=== PATIENT | female | born 1965 | race Caucasian/White ===

== ENCOUNTER 2017-06-22 15:45 | Emergency (ER) | payer MEDICAID, MEDICARE ==
[2017-06-22 17:05] VITALS: BP 132/83
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
== END 2017-06-22 18:01 | disposition short-term general hospital (02) ==
LOC: UCCORT 15:45
DX: R22.0 Localized swelling, mass and lump, head (principal); R51 Headache; H53.8 Other visual disturbances; F17.210 Nicotine dependence, cigarettes, uncomplicated
CPT/HCPCS: 99201; G0463

== ENCOUNTER 2017-08-15 12:25 | Emergency (ER) | payer MEDICARE ==
[2017-08-15 12:44] VITALS: BP 114/74
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
--- NOTE | 2017-08-15 13:59 | RAD ---
INDICATION: Nasal bone trauma. TECHNIQUE: 3 views of the nasal bones were obtained including lateral and Michaels views. FINDINGS: There is soft tissue swelling overlying the nose and anterior to the frontal sinuses. There is a large defect in the proximal portion of the nasal bones possibly from prior surgery, trauma less likely a mass replacing the bone. No acute fracture is seen. There is mild deviation of the nasal septum toward the right side. There is mild mucosal thickening within the right maxillary sinus. The paranasal sinuses otherwise appear clear. IMPRESSION: LARGE DEFECT IN THE PROXIMAL PORTION OF THE NASAL BONES POSSIBLY FROM PRIOR TRAUMA OR SURGERY LESS LIKELY A MASS. RECOMMEND CLINICAL CORRELATION. NO ACUTE FRACTURE IS SEEN.
== END 2017-08-15 14:45 | disposition home or self-care (01) ==
LOC: UCEAST 12:25
DX: S00.33XA Contusion of nose, initial encounter (principal); W22.8XXA Striking against or struck by other objects, initial encounter; Y93.9 Activity, unspecified; Y92.9 Unspecified place or not applicable
CPT/HCPCS: 70160; 99211; G0463

== ENCOUNTER → 2017-09-16 13:07 | Day surgery (SDC) | payer MEDICARE ==
[~2017-09-16 13:07] MED LIST: Acetaminophen TAB* 325 MG PO PRN; Buffered Lidocaine 0.9% SYRIN* 5 ML/SYR SYRINGE INTRADERM ONE; Lidocaine 1% MPF wEPI 200,000* 30 ML SDV ONE; Lidocaine 2% JELLY* 6 ML JELLY TOPICAL ONE; Lidocaine 2% PF * 5 ML VIAL ONE; Lidocaine 4% TOPICAL* 50 ML TOP.SOLN ONE; Naloxone* 0.4 MG/ML 1 ML VIAL IV PRN; Oxymetazoline 0.05% NASAL SPR* 15 ML BTL ONE; Propofol* 10 MG/ML 20 ML BTL IV PUSH ONE; fentaNYL* 50 MCG/ML 2 ML VIAL (100 MCG VIAL) ONE; oxyCODONE/Acetamin 5/325 MG* TAB ONE
[2017-09-16] MEDS: oxyCODONE/Acetamin 5/325 MG* TAB PO PRN ×2 (17:35→17:36)
[2017-09-16 17:39] VITALS: BP 147/86
--- NOTE | 2017-09-17 12:26 | OP ---
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 OPERATIVE PROCEDURE: Endoscopic ethmoidectomy and biopsy of nasal mass. BRIEF HISTORY: This pleasant 52-year-old female presenting with an expansile lesion of the nasal cavity. This appeared to be a fairly aggressive tumor. DESCRIPTION OF PROCEDURE: The patient was taken to the operating room, general anesthetic was given, the patient was intubated with LMA. Nose was decongested with Afrin-placed pledgets. Subsequently, a 0-degree telescope with endoscopic sinus surgery instruments were utilized. We turned our attention initially to the left side, infiltrating with 2% lidocaine with epinephrine into the ethmoid region and then subsequently resecting at the ethmoid bullae and coursing superiorly, and examining the area with a scope, removing tissue which was confirmed to be a neoplastic most likely malignant. Further biopsies were carried out in the ethmoid region for additional specimen. The area was then packed with Ebenezer packs. The patient was then awakened and sent to the recovery room in stable condition. Instrument and sponge count correct. Blood loss minimal. [id number]/[facility] #: [id number] MTDD
== END | disposition home or self-care (01) ==
LOC: OR 13:07
PROVIDERS: ATTEND Otolaryngology
DX: C31.1 Malignant neoplasm of ethmoidal sinus (principal); C30.0 Malignant neoplasm of nasal cavity; J31.0 Chronic rhinitis; F17.210 Nicotine dependence, cigarettes, uncomplicated
CPT/HCPCS: 88305; 88331; 88341; 88342; 88365; A9270-GY; J2001; J2704; J3010

== ENCOUNTER 2018-03-31 15:15 | Emergency (ER) | payer MEDICARE, MEDICAID ==
[2018-03-31 15:34] VITALS: BP 137/90
--- NOTE | 2018-03-31 15:56 | UC ---
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 Negative: Dyspnea, Fever, Chills, Pleuritic Chest Pain, Wheezing - Risk Factors Pulmonary Embolism Risk Factors: Malignancy - Allergies/Home Medications Allergies/Adverse Reactions: Allergies Allergy/AdvReac Type Severity Reaction Status Date / Time No Known Allergies Allergy Verified 03/31/18 15:34 Home Medications: Home Medications Pseudoephedrine TAB* [Sudafed TAB*] 60 mg PO ONCE PRN 03/31/18 [History Confirmed 03/31/18] PMH/Surg Hx/FS Hx/Imm Hx Previously Healthy: Yes Respiratory History: Bronchitis - Surgical History Surgical History: Yes Surgery Procedure, Year, and Place: 2 C-sections [facility]. CANCEROUS TUMOR REMOVAL ( FACE) - Family History Known Family History: Positive: Hypertension - Social History Alcohol Use: None Substance Use Type: None Smoking Status (MU): Current Every Day Smoker Type: Cigarettes Amount Used/How Often: 1/2 PPD Length of Time of Smoking/Using Tobacco: 37 YRS Have You Smoked in the Last Year: Yes Household Exposure Type: Cigarettes Review of Systems All Other Systems Reviewed And Are Negative: Yes Constitutional: Positive: Negative Skin: Positive: Negative Eyes: Positive: Negative ENT: Positive: Sinus Congestion, Sinus Pain/Tenderness Respiratory: Positive: Shortness Of Breath, Cough Cardiovascular: Positive: Chest Pain Gastrointestinal: Positive: Negative Genitourinary: Positive: Negative Motor: Positive: Negative Neurovascular: Positive: Negative Musculoskeletal: Positive: Negative Neurological: Positive: Negative Psychological: Positive: Negative Physical Exam Triage Information Reviewed: Yes Appearance: Well-Appearing, No Pain Distress, Well-Nourished Vital Signs: Initial Vital Signs Temp 98.4 F 03/31/18 15:29 Pulse 115 03/31/18 15:29 Resp 16 03/31/18 15:29 BP 137/90 03/31/18 15:29 Pulse Ox 98 03/31/18 15:29 Vital Signs Reviewed: Yes Eyes: Positive: Conjunctiva Clear ENT: Positive: Hearing grossly normal, Nasal congestion, Other - jamal orbital edema and post surgical changes Neck: Positive: Supple, Nontender Respiratory: Positive: Lungs clear, Normal breath sounds, No respiratory distress, No accessory muscle use Cardiovascular: Positive: RRR, No Murmur, Tachycardia Neurological: Positive: Alert Psychological Exam: Normal Skin Exam: Normal UC Diagnostic Evaluation - Laboratory O2 Sat by Pulse Oximetry: 98 - normal/not hypoxic - Radiology Radiology Interpretation Completed By: Radiologist Summary of Radiographic Findings: THERE IS NODULARITY OF THE LEFT LOWER LUNG. GIVEN THE HISTORY OF MALIGNANCY, METASTATIC. DISEASE TO THE LUNG IS WITHIN THE DIFFERENTIAL. RECOMMEND CONSIDERATION OF FURTHER. EVALUATION WITH CT OF [facility] - EKG Cardiac Rate: Tachycardia - 105 Cardiac Rhythm: Sinus: Normal Ectopy: None ST Segment: Normal Respiratory Course/Dx - Course Course Of Treatment: D/W [facility]. pt will be driven down to ER by her son - Differential Dx/Diagnosis Provider Diagnoses: chest pain of uncertain cause. left pulmonary nodule. ?PE Discharge - Sign-Out/Discharge Documenting (check all that apply): Patient Departure All imaging exams completed and their final reports reviewed: Yes - Discharge Plan Condition: Stable Disposition: TRANS HIGHER LVL OF CARE FAC Referrals: Mari SUAREZ SALESPERSON HOSIERYTenisha [Primary Care Provider] - Additional Instructions: I suggest you go directly to the ER for evaluation of your chest pain and shortness of breath - Billing Disposition and Condition Condition: STABLE Disposition: Trans Higher Lvl of Care Fac
== END 2018-03-31 17:01 | disposition short-term general hospital (02) ==
LOC: UCEAST 15:15
DX: R07.9 Chest pain, unspecified (principal); R91.1 Solitary pulmonary nodule; R06.02 Shortness of breath; R05 Cough; F17.210 Nicotine dependence, cigarettes, uncomplicated
CPT/HCPCS: 71046; 93005; 99212; G0463

== ENCOUNTER 2018-06-16 17:49 | Emergency (ER) | payer MEDICARE, MEDICAID ==
[2018-06-16 18:31] VITALS: BP 118/79
--- NOTE | 2018-06-16 19:24 | UC ---
Ear Complaint HPI - HPI Summary HPI Summary: 53 y/o female presents to the urgent care c/o B/l eye redness with crusting yellowish drainage since this morning when she woke up. She also c/o of left Ear pain since yesterday. 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 Pt states healing wound had been healing well, until last night when she developed left ear pain. Pain is 8/10 with decrease hearing. She took an Ibuprofen PO to alleviate symptoms. She has a f/u appt on 07/05/2018 with her surgeon. She has been doing the saline rinses as directed. She has mild nasal congestion with clear nasal discharge today. Pt denies fever, dizziness, tinnitus, SHUKLA, visual changes, photophobia, eye pain, SOB, chest pain, abdominal pain, N/V/D. - History of Current Complaint Chief Complaint: UCEar Stated Complaint: EAR ACHE Time Seen by Provider: 06/16/18 19:08 Hx Obtained From: Patient Hx Last Menstrual Period: hide curer Onset/Duration: Gradual Onset, Lasting Days - 1 day, Still Present, Worse Since - this morning Severity Initially: Mild Severity Currently: Moderate Pain Intensity: 7 - ear pain Pain Scale Used: 0-10 Numeric Aggravating Factors: Nothing Alleviating Factors: OTC Meds Associated Signs/Symptoms: Positive: Hearing Loss - decrease on left ear, URI Symptoms - Allergies/Home Medications Allergies/Adverse Reactions: Allergies Allergy/AdvReac Type Severity Reaction Status Date / Time No Known Allergies Allergy Verified 06/16/18 18:31 PMH/Surg Hx/FS Hx/Imm Hx Previously Healthy: Yes Other Cancer History: nasal tumor recently removed on 05/21/2018 - Surgical History Surgical History: Yes Surgery Procedure, Year, and Place: 2 C-sections [facility];. CANCEROUS TUMOR REMOVAL (FACE); - Family History Known Family History: Positive: Hypertension - Social History Occupation: Unemployed Lives: With Family Alcohol Use: None Substance Use Type: None Smoking Status (MU): Light Every Day Tobacco Smoker Type: Cigarettes Amount Used/How Often: 1/2 PPD Length of Time of Smoking/Using Tobacco: 37 YRS Have You Smoked in the Last Year: Yes Household Exposure Type: Cigarettes Review of Systems All Other Systems Reviewed And Are Negative: Yes Constitutional: Positive: Negative Skin: Positive: Negative Eyes: Positive: Eye Redness - B/L eye redness with yellowish discharge ENT: Positive: Ear Ache - left ear pain, Nasal Discharge - clear, Sinus Congestion Respiratory: Positive: Negative Cardiovascular: Positive: Negative Gastrointestinal: Positive: Negative Genitourinary: Positive: Negative Motor: Positive: Negative Neurovascular: Positive: Negative Musculoskeletal: Positive: Negative Neurological: Positive: Negative Psychological: Positive: Negative Is Patient Immunocompromised?: No Physical Exam - Summary Physical Exam Summary: Vital Signs Reviewed: Yes General: Well appearing, well nourished female in no apparent pain distress Eyes: Positive: B/L Conjunctiva Inflamed - Visual acuity: WNL,Visual chiu: full to confrontation. Pt with healing scar over the anterior superior nasal cavity and frontal sinus healing well with mild sorrounding erythema, non tender to palaption.PERRLA, EOMI intact w/out limitation or complaint of pain. eyelashes clear. mild tearing and yellowish drainage observed. No ciliary flush. No chemosis, No photophobia. Normal fundoscopic exam; no proptosis, exophthalmos, nystagmus. ENT: Positive: Normal ENT inspection, Hearing grossly normal, Pharynx normal, Nasal congestion, Nasal clear drainage, LF TM injected with erythema and mild purulent discahrge, Rt TN WNL, - B/L external ear canal clear , Negative Tonsillar swelling or Tonsillar exudate Neck: Positive: Supple, Nontender, No Lymphadenopathy Respiratory: Positive: Chest nontender, Lungs clear, Normal breath sounds, No respiratory distress Cardiovascular: Positive: RRR, No Murmur, Pulses Normal, Brisk Capillary Refill Abdomen Description: Positive: Nontender, No Organomegaly, Soft. Negative: CVA Tenderness (R), CVA Tenderness (L) Bowel Sounds: Positive: Present Musculoskeletal: Positive: Strength Intact, ROM Intact, No Edema Neurological Exam: Normal Psychological Exam: Normal Skin Exam: Normal Triage Information Reviewed: Yes Vital Signs: Initial Vital Signs Temp 98.8 F 06/16/18 18:26 Pulse 86 06/16/18 18:26 Resp 16 06/16/18 18:26 BP 118/79 06/16/18 18:26 Pulse Ox 99 06/16/18 18:26 Ear Complaint Course/Dx - Course Course Of Treatment: 53 y/o female presents to the urgent care c/o B/l eye redness with crusting yellowish drainage since this morning when she woke up. She also c/o of left Ear pain since yesterday. Pt reports on 05/21/2018 a Malignant tumor was removed from her anterior superior and frontal sinus cavity by DR Andujar in [place], [place]. Pt states healing wound had been healing well, until last night when she developed left ear pain. Pain is 8/10 with decrease hearing. She took an Ibuprofen PO to alleviate symptoms. She has a f/u appt on with her surgeon. She has been doing the saline rinses as directed. She has mild nasal congestion with clear nasal discharge today. Pt denies fever , dizziness, tinnitus, SHUKLA, visual changes, photophobia, eye pain, SOB, chest pain, abdominal pain, N/V/D. Hx obtained. Pt w/ B/L bacterial conjunctivitis and left otitis media on examination. Pt is afebrile and hemodynamically stable. Pt's symptoms discussed with Dr pratt who recommended Rx antibiotics and f/u with Surgeon as soon as possible for further management. Pt Rx Amoxicillin PO and Ciprofloxacin opthalmic drops as directed below. Advised to sterilize the tea cup where she does the nasal rinses to avoid increase infection. Strongly advised to call DR Andujar tomorrow to get a sooner appt for 1 -2 days for further managment. D/C instrucitons explained. Pt understood and agreed with plan of care. Pt left clinic hemodynamically stable, A&OX3. - Differential Dx/Diagnosis Differential Diagnosis/HQI/PQRI: Cerumen Impaction, Otitis Externa, Otitis Media , Perforated TM, URI, Other - conjunctivitis Provider Diagnosis: Acute bacterial conjunctivitis of both eyes, Left otitis media Discharge - Sign-Out/Discharge Documenting (check all that apply): Patient Departure - d/c home All imaging exams completed and their final reports reviewed: No Studies - Discharge Plan Condition: Stable Disposition: HOME Prescriptions: Amoxicillin PO (*) [Amoxicillin 875 MG (*)] 875 mg PO BID #20 tab Ciprofloxacin 0.3% OPTH.RAYNE* [Cipro 0.3% Opth*] 2 drop BOTH EYES Q4H #1 btl Patient Education Materials: Ear Infection (ED), Conjunctivitis (ED) Referrals: Eboni Andujar MD [Medical Doctor] - 1 Day Mari SCHUMACHER,Tenisha [Primary Care Provider] - 2 Days Odell Mahmood MD [Medical Doctor] - If Needed Additional Instructions: 1-Please apply ciprofloxacin ophthalmic drops as instructed and finish the full course of treatment to avoid recurrent infection. encourage hand washing to avoid spreading 2-Please take Amoxicillin PO as directed to alleviate Left otitis Media. finish full course of antibiotic to avoid resistance. 3-Please call back you Nose Surgeo DR Andujar tomorrow to get a sooner appt for a f/u check up on your recent surgery and make sure symptoms are improving with antibiotics. 4-If unable to get a sooner appt and symptoms do not improve please f/u with ENT Dr Mahmood for further evaluation and treatment - Billing Disposition and Condition Condition: STABLE Disposition: Home
[2018-06-16 19:59] LABS: Influenza A Molecular NEGATIVE (Negative); Influenza B Molecular NEGATIVE (Negative)
== END 2018-06-16 20:30 | disposition home or self-care (01) ==
LOC: UCEAST 17:49
DX: H10.33 Unspecified acute conjunctivitis, bilateral (principal); H66.92 Otitis media, unspecified, left ear; R09.81 Nasal congestion; F17.210 Nicotine dependence, cigarettes, uncomplicated; B96.89 Other specified bacterial agents as the cause of diseases classified elsewhere
CPT/HCPCS: 99212; G0463